=== PATIENT | male | born 1960 | race Caucasian/White ===

== ENCOUNTER → 2024-12-11 11:53 | Outpatient (CLI) | payer OTHER, SELFPAY ==
[2024-12-11 12:33] LABS: Hematocrit 42.9 % (41-53); Hemoglobin 14.4 g/dL (13.5-17.5); Mean Corpuscular HGB Conc 33.6 % (30-36); Mean Corpuscular Hemoglobin 30.5 PG (26-34); Mean Corpuscular Volume 90.6 fL (80-100); Platelet Count 191 X10^3/uL (150-400); Red Blood Cell Count 4.73 X10^6/uL (4.5-5.9); Red Cell Distribution Width 13.2 % (11.6-14.8); White Blood Cell Count 7.4 X10^3/uL (4.5-11.0)
[2024-12-11 12:47] LABS: Hemoglobin A1C% w Est Avg Glu 5.6 % (4.0-6.0)
[2024-12-11 12:56] LABS: Alanine Aminotransferase 34 IU/L (<50); Albumin 4.9 g/dL (3.5-5.0); Albumin Globulin Ratio 1.8 (1.0-2.8); Alkaline Phosphatase 56 U/L (38-126); Aspartate Aminotransferase 34 IU/L (17-59); BUN Creatinine Ratio 12.6 (6-22); Bilirubin Total 0.4 mg/dL (0.2-1.3); Blood Urea Nitrogen 13 mg/dL (9-20); Calcium 10.4 mg/dL (8.4-10.2); Carbon Dioxide 26 mmol/L (22-32); Chloride 104 mmol/L (98-107); Cholesterol 308 mg/dL (140-199); Estimated Glomerular Filt Rate > 60 mL/min (>60); Globulin 2.8 g/dL (1.7-4.1); Glucose 130 mg/dL (80-110); HDL Cholesterol 62 mg/dL (40-60); HEMOLYSIS < 15 (0-50); LDL Cholesterol Calculated 208 mg/dL (<100); Potassium 4.7 mmol/L (3.4-5.1); Sodium 138 mmol/L (137-145); Total Protein 7.7 g/dL (6.3-8.2); Triglycerides 191 mg/dL (35-150)
[2024-12-11 13:59] LABS: Creatinine Urine Random 69.13 mg/dL
[2024-12-11 14:06] LABS: Microalbumin Urine Random 4.8 mg/dL (0-1.6)
== END ==
PROVIDERS: PCP Family Medicine; Referring Provider Family Medicine; Visit Provider Family Medicine
DX: I10 Essential (primary) hypertension (principal); Z13.1 Encounter for screening for diabetes mellitus; E78.5 Hyperlipidemia, unspecified
CPT/HCPCS: 36415; 80053; 80061; 82043; 82570; 83036; 85027

== ENCOUNTER → 2024-12-25 06:38 | Outpatient (CLI) | payer OTHER, SELFPAY ==
--- NOTE | 2024-12-25 06:40 | DI.CT.S_ITS ---
PROCEDURE: CT LUNG LOW DOSE SCREENING INDICATIONS: 35 year smoking hx TECHNIQUE: Noncontrast 2.0-2.5 mm thick sections acquired from the pulmonary apices to the posterior costophrenic angles. 7 mm thick axial MIP, and 5 mm coronal and sagittal reformats were then acquired. For radiation dose reduction, the following was used: automated exposure control, adjustment of mA and/or kV according to patient size. COMPARISON: None. FINDINGS: Image quality: Diagnostic. Lower Neck: No enlarged lymph nodes. Thyroid: No thyroid nodules which require sonographic follow up, per consensus guidelines. Axillae: No enlarged lymph nodes. Chest Wall: Unremarkable. Bones: Unremarkable. Lungs and Pleura: No pneumothorax or pleural effusions. Within the left lower lobe laterally, there is a 3 mm nodule seen, as on series 3, image 239. No focal infiltrates are seen. Heart: Heart size is normal. No pericardial effusion. Moderate to prominent coronary artery calcification can be seen. Thoracic Vessels: The aorta and pulmonary arteries demonstrate normal size. Mediastinum and Emma: No enlarged lymph nodes. Esophagus: No wall thickening. No hiatal hernia. Upper Abdomen: Cholecystectomy clips are seen. Visualized upper abdomen solid organs and bowel loops appear normal. IMPRESSION: No suspicious pulmonary nodules. There is a 3 mm nodule seen within the left lower lobe laterally. LUNG-RADS 2; continued annual screening, if eligible. Clinically Significant Non-pulmonary Findings: Moderate to prominent coronary artery calcification Cholecystectomy Dictated by: Cuba Santana M.D. on 12/25/2024 at 11:02 Approved by: Cuba Santana M.D. on 12/25/2024 at 11:05
== END ==
PROVIDERS: PCP Family Medicine; Referring Provider Family Medicine; Visit Provider Family Medicine
DX: I25.10 Atherosclerotic heart disease of native coronary artery without angina pectoris (principal); R91.1 Solitary pulmonary nodule; Z87.891 Personal history of nicotine dependence; Z90.49 Acquired absence of other specified parts of digestive tract; Z12.11 Encounter for screening for malignant neoplasm of colon
CPT/HCPCS: 71271

== ENCOUNTER → 2024-12-27 14:38 | Outpatient (CLI) | payer OTHER, SELFPAY ==
[2024-12-27 16:28] LABS: Prostate Specific Antigen Scrn 1.55 ng/mL (0.1-4.0)
== END ==
PROVIDERS: PCP Family Medicine; Referring Provider Family Medicine; Visit Provider Family Medicine
DX: Z12.5 Encounter for screening for malignant neoplasm of prostate (principal)
CPT/HCPCS: 36415; G0103

== ENCOUNTER 2025-01-31 12:18 | Day surgery (SDC) | payer OTHER, SELFPAY ==
--- NOTE | 2025-01-31 | PATH_ITS ---
[facility] Accession Number: [id number] No. of containers..01 Tissue . 01 Material submitted: . sigmoid colon - SIGMOID POLYP . 01 Diagnosis: SIGMOID POLYP : Colonic mucosa with benign lymphoid aggregate. No neoplasm identified. [facility] 02/04/2025 1514 Local . 01 Electronically signed: . Deangelo Gloria MD, Pathologist NPI- [id number] . 01 Gross description: . Received in formalin with two patient identifiers and sigmoid polyp, and consists of a 0.1 cm in greatest dimension, minute mccurdy tissue, which is submitted in toto in cassette A1. ([id number]) /MRV 02/04/2025 1514 Local . 01 Pathologist provided ICD-10: K63.89 . 01 CPT . 598931 Specimen Comment: A courtesy copy of this report has been sent to [facility] Performed at: [address] [address], [place], [place] [id number] MD Deangelo Gloria MD Phone: [phone]
[2025-01-31 12:34] VITALS: BP 160/82; PULSE 65; RESP 16; TEMP 36.6; O2SAT 99
[2025-01-31] MEDS: LACTATED RINGERS 1,000 ML 42 ML IV (12:39)
--- NOTE | 2025-01-31 13:17 | P.HP_ITS ---
History of Present Illness History of Present Illness Date Patient Seen: 01/31/25 Time Patient Seen: 13:17 Chief complaint: SDC Narrative: 64-year-old white male no previous history of polyps presents for 10 year screening colonoscopy. [facility] Surgical History [facility] teeth removed (11/21/83) Social History marital status: number of children: 2 household members: children lives independently: Yes occupational status: employed ([employer] at [employer]) Smoking Status: Former smoker Tobacco: How many years used: 35 alcohol intake: former substance use type: marijuana (daily) Meds Home Medications and Allergies Home Medications Medication Instructions Recorded Confirmed Type sodium,potassium,mag sulfates 17.5 See Rx Instructions PO .COMPLEX 12/24/24 Rx gram-3.13 gram-1.6 gram oral soln #354 mL (Suprep Bowel Prep Kit) sildenafil 50 mg tablet (Viagra) 50 mg PO DAILY PRN Sexual Activity 01/02/25 01/31/25 History simvastatin 40 mg tablet 40 mg PO BEDTIME #90 tabs 01/10/25 01/31/25 Rx Allergies Allergy/AdvReac Type Severity Reaction Status Date / Time No Known Drug Allergies Allergy Unverified 01/31/25 12:33 Exam Vital Signs (past 8 hours): - 01/31/25 12:34 Temperature 97.9 F Pulse Rate 65 Respiratory Rate 16 Blood Pressure 160/82 H Pulse Oximetry 99 Oxygen Delivery Method Room Air Oxygen Flow Rate 0 Oxygen Delivery Method Room Air Oxygen Flow Rate 0 Narrative Exam Narrative: Gen: NAD, sitting comfortably in bed, appears well HEENT: Sclera are anicteric, head is normocephalic and atraumatic, trachea is midline. CV: RRR, no JVD Resp: clear to auscultation bilaterally, equal chest wall movement bilaterally Abd: soft, nontender, normoactive bowel sounds Ext: no edema, full range of motion Neuro: Cranial nerves II-XII grossly intact, no focal deficits Skin: No erythema or ecchymosis Assessment & Plan Assessment and plan (1) Colon cancer screening: Status: Acute Assessment & Plan narrative: Patient presents for colonoscopy Risks, benefits, alternatives to colonoscopy explained, including but not limited to bowel perforation or other serious complication requiring surgery at less than 1 in 5000 colonoscopies, abdominal pain, cramping or bleeding and less than 1% of colonoscopies, and the chances that we find a diagnosis that would require further intervention of about 2%. Patient agrees to proceed. Time-Based Coding :: [TOTAL MINUTES] spent with patient and on the chart (including review of chart, obtaining history, exam, reviewing outside data, placing orders, documenting exam and treatment plan, and counseling patient) on [DATE]. [employer] Document charge(s): No
--- NOTE | 2025-01-31 13:41 | PM.OP.COLON ---
Operative Date/Time/Diagnoses Date of procedure: 01/31/25 Time of procedure: 13:41 Pre-op diagnosis: Colon screening Post-op diagnosis: same (Benign sigmoid polyp) Procedure & Clinicians Study performed: Colonoscopy with cold snare polypectomy of sigmoid polyp Same procedure as scheduled: Yes Indications: Colon screening Surgeon: Miguel Mcmahon Procedure Notes Procedure in detail: Time-out was performed. Mac was induced. Patient was placed in left lateral decubitus position. The perineum was inspected without any gross abnormality. Lubricated pediatric colonoscope was inserted and advanced to the cecum. The terminal ileum was intubated. The colonoscope was withdrawn slowly inspecting the circumference of the colon. Small benign-appearing polyp was noted in the sigmoid colon, removed and retrieved with cold snare polypectomy. Very small polyps may have been missed, prep quality was adequate. Retroflexed view of the rectum showed small, non prolapsed nonbleeding internal hemorrhoids. The scope was withdrawn the patient was taken to PACU in good condition. Scope withdrawal time: 8 Findings: polyp(s) Specimen(s): other (Sigmoid polyp) Complications: none Post-procedure Recommendations: Colonoscopy in 10 years (Next colonoscopy in 7-10 year) Follow up: as needed Disposition: PACU
[2025-01-31 13:45] VITALS: BP 110/66; PULSE 70; RESP 16; TEMP 37; O2SAT 94
[2025-01-31 13:53] VITALS: BP 111/62; PULSE 62; RESP 14; TEMP 36.9; O2SAT 95
== END 2025-01-31 14:30 | disposition home or self-care (01) ==
PROVIDERS: PCP Family Medicine; Referring Provider Surgery; Visit Provider Surgery
PROC: 0DJD8ZZ Inspection of Lower Intestinal Tract, Via Natural or Artificial Opening Endoscopic (ICD-10-PCS; CPT 45378; principal; 2025-01-31 13:30)
DX: Z12.11 Encounter for screening for malignant neoplasm of colon (principal); Z87.891 Personal history of nicotine dependence; K63.5 Polyp of colon
CPT/HCPCS: 45385; J2405; J2704

== ENCOUNTER → 2025-06-13 11:22 | Outpatient (CLI) | payer OTHER, SELFPAY ==
[2025-06-13 13:16] LABS: Alanine Aminotransferase 72 IU/L (<50); Albumin 5.1 g/dL (3.5-5.0); Albumin Globulin Ratio 1.5 (1.0-2.8); Alkaline Phosphatase 58 U/L (38-126); Blood Urea Nitrogen 15 mg/dL (9-20); Calcium 10.1 mg/dL (8.4-10.2); Carbon Dioxide 26 mmol/L (22-32); Chloride 102 mmol/L (98-107); Cholesterol 292 mg/dL (140-199); Creatine Kinase 150 U/L (55-170); Estimated Glomerular Filt Rate > 60 mL/min (>60); Globulin 3.3 g/dL (1.7-4.1); Glucose 115 mg/dL (70-99); HDL Cholesterol 68 mg/dL (40-60); HEMOLYSIS < 15 (0-50); Potassium 4.5 mmol/L (3.4-5.1); Sodium 139 mmol/L (137-145); Total Protein 8.4 g/dL (6.3-8.2); Triglycerides 137 mg/dL (35-150)
[2025-06-13 13:29] LABS: Appearance Urine UA CLEAR; Bilirubin Urine UA NEGATIVE (NEGATIVE); Color Urine UA YELLOW; Glucose Urine UA NEGATIVE (Negative); Ketones Urine UA NEGATIVE (NEGATIVE); Leukocyte Esterase Urine UA NEGATIVE (NEGATIVE); Nitrite Urine UA NEGATIVE (Negative); Occult Blood Urine UA TRACE-INTACT (Negative); Protein Urine UA NEGATIVE (Negative); Specific Gravity Urine UA <=1.005 (1.000-1.035); Urobilinogen Urine UA 0.2 E.U./dL (0.2); pH Urine UA 7.5 (4.5-8.0)
[2025-06-13 13:36] LABS: Culture Indicated Urine Cult Not Indicated
[2025-06-13 15:29] LABS: HIV 1 & 2 Ab/Ag 4th Gen Combo NEGATIVE (NEGATIVE); Hep C Virus Ab w/Reflex Quant NEGATIVE s/c (NEGATIVE)
== END ==
PROVIDERS: PCP Family Medicine; Referring Provider Family Medicine; Visit Provider Family Medicine
DX: M54.9 Dorsalgia, unspecified (principal); Z79.899 Other long term (current) drug therapy; Z11.4 Encounter for screening for human immunodeficiency virus [HIV]; Z11.59 Encounter for screening for other viral diseases; E83.52 Hypercalcemia; R82.90 Unspecified abnormal findings in urine; I10 Essential (primary) hypertension; R82.998 Other abnormal findings in urine; E78.5 Hyperlipidemia, unspecified
CPT/HCPCS: 36415; 80053; 80061; 81001; 82550; 86803; 87389

== ENCOUNTER → 2025-07-30 12:53 | Outpatient (CLI) | payer OTHER, SELFPAY ==
[2025-07-30 16:51] LABS: Urine N gonorrhoeae NOT DETECTED
[2025-07-30 16:53] LABS: Urine Chlamydia NOT DETECTED
== END ==
PROVIDERS: PCP Family Medicine; Visit Provider Chiropractor
DX: R36.9 Urethral discharge, unspecified (principal); L29.3 Anogenital pruritus, unspecified
CPT/HCPCS: 87086; 87210; 87491; 87591